=== PATIENT | female | born 1950 | race Caucasian/White ===

== ENCOUNTER → 2016-11-01 | Outpatient (CLI) | payer OTHER ==
--- NOTE | ~2016-11-01 | MR113 ---
[facility] A Service of [facility] / [facility] RADIOLOGY TEXT RESULTS PATIENT: ALTAGRACIA ARIAS LOCATION: [facility] : 49 UNIT #: [id number] AGE: [address]: Gaurav Somers MD SEX: F ORDER DR: [id number] [facility] [address] [place], [place] [address] [id number] O MR#: [id number] Acc #: [id number] NAME: ALTAGRACIA ARIAS : 1950 SEX: F STUDY DATE/TIME: 11/01/2016 18:32 UNIT: [facility] ROOM: STUDY DESCRIPTION: MR Lumbar Wo Contrast Attending Physician: Gaurav Somers M.D. Ordering Physician: Gaurav Somers M.D. Primary Care Physician: Generic Doctor Not In System MRI CENTER REPORT This report is preliminary unless electronic signature is present. EXAM MRI lumbar spine without contrast INDICATION Lower back pain since June 2016, worsening over the past 3 weeks. Bilateral lower extremity radiculopathy. PROCEDURE Sagittal and axial T1 and T2-weighted imaging of the lumbar spine without contrast. COMPARISON None FINDINGS Lumbar bodies have normal height. There is minimal approximately 2.0 mm retrolisthesis of L5 on S1 and L2 on L3. Multilevel degenerative disc disease throughout the lumbar and included lower thoracic spine. Conus terminates at T12. No abnormal paravertebral mass. Degenerative endplate changes at L3-L4. There is multilevel degenerative change in the included lower thoracic spine. Central canal narrowing is most significant at T10-11 and is severe. Probably severe neural foraminal narrowing at this level. T12-L1: Circumferential disc osteophyte with moderate facet arthrosis and moderate central canal narrowing. Moderately severe right and severe left neural foraminal narrowing. L1-L2: Circumferential disc osteophyte. Bilateral facet arthrosis with moderate central canal narrowing. Moderately severe right and severe left neural foraminal narrowing. [facility] A Service of [facility] / [facility] RADIOLOGY TEXT RESULTS PATIENT: ALTAGRACIA ARIAS LOCATION: [facility] : 49 UNIT #: [id number] AGE: [address]: Gaurav Somers MD SEX: F ORDER DR: L2-L3: Circumferential disc osteophyte. Moderately severe bilateral facet arthrosis and ligamentum flavum hypertrophy. Severe central canal narrowing. Severe bilateral neural foraminal narrowing. L3-L4: Circumferential disc osteophyte. Bilateral facet arthrosis with severe central canal narrowing. There is moderately severe bilateral neural foraminal narrowing. L4-L5: Circumferential disc osteophyte and facet arthrosis. Moderately severe to severe central canal narrowing. There is severe bilateral neural foraminal narrowing, right greater than left. L5-S1: Circumferential disc osteophyte, bilateral facet arthrosis. Moderate central canal narrowing with severe bilateral neural foraminal narrowing. IMPRESSION 1. Multilevel degenerative disc disease and facet arthrosis resulting in multilevel significant central canal and neural foraminal narrowing throughout the lumbar spine as well as the included lower thoracic spine. Please refer to the above dictation for level by level details. Central canal narrowing in the lumbar spine is most significant at L3-L4 and L2-L3 and in the lower thoracic spine at T10-11. 2. There is multilevel severe neural foraminal narrowing throughout the lumbar spine detailed above. Dictated by... Adalid Vyas M.D. THIS IS AN ELECTRONICALLY VERIFIED REPORT Adalid Vyas M.D. at 11/06/2016 11:07 AM Taryn TD: 11/02/2016 12:21 JOB #: [id number] MRI CENTER REPORT Page 1 of 1 COPY
== END | disposition home or self-care (01) ==
LOC: CMRI 17:47
DX: M54.16 Radiculopathy, lumbar region (principal); R25.8 Other abnormal involuntary movements; M51.16 Intervertebral disc disorders with radiculopathy, lumbar region; M99.83 Other biomechanical lesions of lumbar region
CPT/HCPCS: 72148